=== PATIENT | female | born 1980 | race Caucasian/White ===

== ENCOUNTER → 2020-08-15 | Outpatient (CLI) | payer OTHER ==
--- NOTE | 2020-08-15 14:17 | KCIC ---
EXAMINATION: Magnetic resonance imaging (MRI) of the brain and brainstem without contrast 08/15/2020 1:15 PM HISTORY: Memory loss. TECHNIQUE: Multiplanar multi-weighted MRI of the brain and brainstem was performed without intravenous contrast using the general brain protocol. COMPARISON: None available. FINDINGS: The scalp and calvarium are normal. The superior sagittal sinus demonstrates normal venous flow. The corpus callosum is normal in shape and signal intensity. The posterior fossa is unremarkable. The pituitary and sella are normal. The brainstem and craniocervical junction are unremarkable. Mild prominence of the bifrontal extra-axial spaces appears chronic. Few scattered foci of T2 /FLAIR signal hyperintensity within the periventricular white matter are within the range of age-related changes. Diffusion weighted images reveal no hyperintensities to suggest acute cerebral infarction. The susceptibility weighted sequences reveal no evidence of acute or chronic hemorrhage. The ventricles are normal in size and position without evidence of hydrocephalus. Air-fluid level is identified in the sphenoid sinus. The visualized portions of the mastoids are unremarkable. The orbits appear normal. Normal flow voids are demonstrated in the carotid arteries and basilar artery. IMPRESSION: No evidence for acute or subacute ischemia. Prominence of the bifrontal extra-axial spaces appears chronic. No significant volume loss is identified. Few foci of T2/FLAIR signal hyperintensity in the periventricular white matter are within the range of age-related changes. Electronically signed by: Denise Marino MD (08/15/2020 2:14 PM) [facility]
== END ==
LOC: KCIC MRI 12:54
PROVIDERS: ATTEND Family Medicine
DX: R41.3 Other amnesia (principal)
CPT/HCPCS: 70551